=== PATIENT | male | born 1970 | race Caucasian/White ===

== ENCOUNTER 2016-09-30 18:54 | Emergency (ER) | payer MEDICAID ==
[~2016-09-30] VITALS: Ht 172.7 cm; Wt 72.0 kg
[2016-09-30 19:39] VITALS: Ht 172.7 cm; Wt 72.0 kg
[2016-09-30] MEDS ORDERED: BACTDS PO (22:04)
[2016-09-30] MEDS ORDERED: CEPH-443 PO (22:04)
[2016-09-30 22:14] VITALS: BP 128/80; PULSE 80; RESP 16; TEMP 98.6
--- NOTE | 2016-10-01 00:14 | ERD ---
ER Documentation Chief Complaint Date/Time DATE: 10/01/16 TIME: 00:11 Chief Complaint abscess left thumb HPI Patient is a 46-year-old male who presents to the ED with left thumb pain. 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 He states that he has pain around his nail. Denies radiation of pain. Denies fever or chills. Denies difficulty moving his thumb. Has not taken any medication for his symptoms. No other complaints. ROS All systems reviewed and are negative except as per history of present illness. Medications Home Meds Active Scripts Cephalexin* (Keflex*) 500 Mg Capsule, 500 MG PO QID for 5 Days, CAP Prov:FREDRICK MCGARRY PA-C 09/30/16 Sulfamethoxazole-Trimethoprim* (Bactrim* DS) 800-160 Mg Tab, 1 TAB PO BID for 5 Days, TAB Prov:FREDRICK MCGARRY-Clementina 09/30/16 Allergies Allergies: Coded Allergies: No Known Allergy (Unverified , 02/06/16) PMhx/Soc History of Surgery: No Anesthesia Reaction: No Hx Neurological Disorder: No Hx Respiratory Disorders: No Hx Cardiac Disorders: No Hx Psychiatric Problems: No Hx Miscellaneous Medical Probl: No Hx Alcohol Use: No Hx Substance Use: No Hx Tobacco Use: Yes Smoking Status: Current every day smoker FmHx Family History: No coronary disease, No diabetes, No other Physical Exam Vitals Vital Signs Date Time Temp Pulse Resp B/P Pulse Ox O2 Delivery O2 Flow Rate FiO2 09/30/16 22:14 98.6 80 16 128/80 100 Room Air 09/30/16 19:39 97.5 73 20 145/92 100 Physical Exam GENERAL: Well-developed, well-nourished male. Appears in no acute distress. LUNG: Clear to auscultation bilaterally. No rhonchi, wheezing, rales or coarse breath sounds. HEART: Regular rate and rhythm. No murmurs, rubs or gallops. Extremities: Equal pulses bilaterally. No peripheral clubbing, cyanosis or edema. No unilateral leg swelling. Slight erythema to the nailbed around the left thumb. No signs of felon. No fingerpad swelling. No streaking. Pulses intact. Radius ulnar and median nerve intact. No deformities or step-offs. Indurated with no fluctuance. No signs of splinting foreign body. NEUROLOGIC: Alert and oriented. Moving all four extremities. 5/5 strength in all extremities. Normal speech. Steady gait. SKIN: Normal color. Warm and dry. No rashes or lesions. Capillary refill < 2 seconds Procedures/MDM ER COURSE: I kept the patient and/or family informed of laboratory and diagnostic imaging results throughout the emergency room course. MEDICAL DECISION MAKING: This is a 46-year-old male who presents with left thumb pain. Vital signs were reviewed. Patient is afebrile. Patient is not hypoxic. Patient is not toxic or ill-appearing. Patient likely has cellulitis versus paronychia of his left thumb. Low suspicion for felon, fracture, osteomyelitis, paronychia, abscess. At this time no drainage will be done in the ED as there is no fluctuance and mostly indurated. DISCHARGE: At this time, patient is stable for discharge and outpatient management with no new complaints during the ER course. Patient was sent home with Bactrim and Keflex and to do warm soaks at home.. Patient will be discharged home with instructions to recheck for new or worsening symptoms such as fever, nausea, weakness, LOC and to follow up with primary care in the next 1-2 days. Patient was advised to return to the ER for any new or worsening symptoms. Plan was discussed and patient and/or family understands and agrees. Home instructions were given. Departure Diagnosis: Primary Impression: Cellulitis Site of cellulitis: extremity Site of cellulitis of extremity: finger Laterality: left Qualified Code: L03.012 - Cellulitis of finger of left hand Condition: Stable Patient Instructions: Abscess, Antiobiotic Treatment Only, Paronychia Additional Instructions: Llame al doctor MAANA y beverly leila KARON PARA DENTRO DE 1-2 RENO.Dgale a la secretaria que nosotros le instruimos hacer esta karon.Avise o llame si jerez condicin se empeora antes de la karon. Regresa aqui si peor o no mejor. FREDRICK MCGARRY PA-C Oct 01, 2016 00:14
== END 2016-09-30 22:15 | disposition home or self-care (01) ==
LOC: FTE 18:54
DX: L03.012 Cellulitis of left finger (principal); F17.210 Nicotine dependence, cigarettes, uncomplicated
CPT/HCPCS: 99284